=== PATIENT | female | born 1995 | race African-American/Black ===

== ENCOUNTER 2016-12-07 18:17 | Emergency (ER) | payer MEDICAID ==
[~2016-12-07] VITALS: Ht 154.9 cm; Wt 62.6 kg
[2016-12-07 18:32] VITALS: BP 122/75
--- NOTE | 2016-12-07 19:01 | Emergency Room Report ---
History of Present Illness General Chief Complaint: Upper Respiratory Illness Source: Patient Present Illness HPI 21 YO female presents to the ED c/o non-productive cough, nasal congestion, 6/ 10 in severity progressive CHADWICK described as pressure, with body-aches x 3 days. denies neck pain, stiffness, photophobia, tinnitus, ear pain, or sore throat. Pt. reports hx of migraines, however this CHADWICK is different in character. pt. described her CHADWICK as pressure in the frontal sinuses, that increases with coughing or sneezing. denies ill contacts or recent travel. denies N/V/F/C. Denies CP, Palpitations, LOC, AMS, dizziness, Changes in Vision, Sensation, paresthesias, or a sudden severe headache. Patient History Past Medical History: see triage record Past Surgical History: none Pertinent Family History: none Last Menstrual Period: 11/28/16 Now: No : 0 Para: 0 Reviewed Nursing Documentation: PMH: Agreed, PSxH: Agreed Nursing Documentation-PMH Past Medical History: No Stated History Review of Systems All Other Systems: negative except mentioned in HPI Physical Exam Vital Signs Date Time Temp Pulse Resp B/P Pulse Ox O2 Delivery O2 Flow Rate FiO2 12/07/16 18:22 98.2 90 18 122/75 97 Room Air Medical Decision Making PA Attestation Dr. Del Castillo is my supervising Physician whom patient management has been discussed with. Diagnostic Impression: Primary Impression: Upper respiratory infection Qualified Codes: J06.9 - Acute upper respiratory infection, unspecified; B97.89 - Other viral agents as the cause of diseases classified elsewhere ER Course 21 YO female presents to the ED c/o non-productive cough, nasal congestion, 6/ 10 in severity progressive CHADWIKC described as pressure, with body-aches x 3 days. denies neck pain, stiffness, photophobia, tinnitus, ear pain, or sore throat. Pt. reports hx of migraines, however this CHADWICK is different in character. pt. described her CHADWICK as pressure in the frontal sinuses, that increases with coughing or sneezing. denies ill contacts or recent travel. denies N/V/F/C. Denies CP, Palpitations, LOC, AMS, dizziness, Changes in Vision, Sensation, paresthesias, or a sudden severe headache. Ddx considered but are not limited to URI, pneumonia, PE, strep pharyngitis, meningitis. Vital signs: Pt. is afebrile, the remaining VS are WNL H&PE are most consistent with URI- no meningeal signs, oropharynx is not involved, no evidence of bacterial infection at this time. ORDERS: none required at this time, the diagnosis is clinical ED INTERVENTIONS: None required at this time. --PT. EDUCATION: Discussed antibiotic resistance with inappropriate prescribing of antibiotics for viral illnesses. Discussed signs and symptoms to indicate viral illness versus bacterial illness. DISCHARGE: At this time pt. is stable for d/c to home. Will provide printed patient care instructions, and any necessary prescriptions. Care plan and follow up instructions have been discussed with the patient prior to discharge. Last Vital Signs Date Time Temp Pulse Resp B/P Pulse Ox O2 Delivery O2 Flow Rate FiO2 12/07/16 18:32 98.2 90 18 122/75 97 Room Air Disposition: HOME, SELF-CARE Condition: Stable Scripts Benzonatate* (TESSALON PERLE*) 100 Mg Capsule 100 MG ORAL THREE TIMES A DAY for 7 Days, #21 PERLE Prov: Carolee Davis 12/07/16 Acetaminophen* (TYLENOL EXTRA STRENGTH*) 500 Mg Tablet 500 MG ORAL Q6H Y for Mild Pain/Temp > 100.5, #20 TAB 0 Refills Prov: Carolee Davis 12/07/16 Pseudoephedrine Hcl* (SUDAFED*) 30 Mg Tablet 30 MG PO Q6H for 5 Days, #20 TAB Prov: Carolee Davis 12/07/16 Departure Forms: Return to Work Return to Work Date: Dec 10, 2016 Work Restrictions: None Return to Full Activity: Dec 10, 2016 Patient Instructions: Upper Respiratory Infection, Adult Additional Instructions: Take medications as directed. Follow up with a Primary Care Provider in 3-5 days, even if your symptoms have resolved. --Please review list of primary care clinics, if you do not already have a primary care provider Return sooner to ED if new symptoms occur, or current symptoms become worse. - Please note that this Emergency Department Report was dictated using [employer] physician assistant technology software, occasionally this can lead to erroneous entry secondary to interpretation by the dictation equipment. Carolee Davis Dec 07, 2016 19:01
[2016-12-07] MEDS ORDERED: PSEUDOEPHEDRINE30 MG PO (19:04)
[2016-12-07] MEDS ORDERED: TYLENOL EXTRA500 MG ORAL (19:04)
[2016-12-07] MEDS ORDERED: TESSALON PERLE100 MG ORAL (19:04)
[2016-12-07 19:08] VITALS: BP 122/75
== END 2016-12-07 19:08 | disposition home or self-care (01) ==
LOC: EMR 18:55
DX: J06.9 Acute upper respiratory infection, unspecified (principal); B97.89 Other viral agents as the cause of diseases classified elsewhere; R51 Headache
CPT/HCPCS: 99284